=== PATIENT | male | born 1990 | race American Indian/Alaskan Native ===

== ENCOUNTER 2019-03-09 14:54 | Emergency (ER) | payer OTHER ==
[2019-03-09 15:04] VITALS: BP 149/99
--- NOTE | 2019-03-09 15:05 | Event Note ---
ED Screening Note Date of service: 03/09/19 Time: 15:02 ED Screening Note: This is a 28 y.o. M. that presents to the ER with left sided facial paralysis since lunch today. Current marijuana and cigarette smoker PMH of bells palsy This initial assessment/diagnostic orders/clinical plan/treatment(s) is/are subject to change based on patients health status, clinical progression and re- assessment by fellow clinical providers in the ED. Further treatment and workup at subsequent clinical providers discretion. Patient/guardian urged not to elope from the ED as their condition may be serious if not clinically assessed and managed. Initial orders include:
--- NOTE | 2019-03-09 15:34 | Emergency Department Report ---
ED Neuro Deficit HPI - General Chief Complaint: Neuro Symptoms/Deficit Stated Complaint: CHATMAN PALSY Time Seen by Provider: 03/09/19 15:02 Source: patient Mode of arrival: Ambulatory Limitations: No Limitations - History of Present Illness Initial Comments: Patient is a 28-year-old male who is presenting with some left sided facial droop starting this morning. 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 Patient states he is having difficulty closing the left high and has tearing. Patient denies any arm or leg involvement. He has some mild facial numbness to the left side of the face. Patient denies any neck stiffness headache fevers chills nausea vomiting. - Related Data Home Medications: Previous Rx's Medication Instructions Recorded Last Taken Type Prednisone [Prednisone 10 mg 10 mg PO .TAPER #1 tab.ds.pk 10/27/14 Unknown Rx (6-Day Pack, 21 Tabs)] Dextran 70/Hypromellose [Natural 2 drop OS QHS #1 bottle 03/09/19 Unknown Rx Balance Tears Eye Drop] Prednisone [predniSONE 10 mg 10 mg PO .TAPER #1 tab.ds.pk 03/09/19 Unknown Rx (6-Day Pack, 21 Tabs)] valACYclovir [Valtrex] 500 mg PO BID #10 tab 03/09/19 Unknown Rx Allergies/Adverse Reactions: Allergies Allergy/AdvReac Type Severity Reaction Status Date / Time No Known Allergies Allergy Unverified 10/27/14 03:16 ED Review of Systems ROS: Stated complaint: CHATMAN PALSY Other details as noted in HPI Comment: All other systems reviewed and negative ED Past Medical Hx - Past Medical History Previous Medical History?: Yes Additional medical history: Chatman's Palsy - Surgical History Past Surgical History?: No - Social History Smoking Status: Current Every Day Smoker Substance Use Type: Alcohol, Marijuana - Medications Home Medications: Home Medications Medication Instructions Recorded Confirmed Last Taken Type Prednisone [Prednisone 10 mg 10 mg PO .TAPER #1 tab.ds.pk 10/27/14 Unknown Rx (6-Day Pack, 21 Tabs)] Dextran 70/Hypromellose [Natural 2 drop OS QHS #1 bottle 03/09/19 Unknown Rx Balance Tears Eye Drop] Prednisone [predniSONE 10 mg 10 mg PO .TAPER #1 tab.ds.pk 03/09/19 Unknown Rx (6-Day Pack, 21 Tabs)] valACYclovir [Valtrex] 500 mg PO BID #10 tab 03/09/19 Unknown Rx ED Neuro Physical Exam - General Limitations: No Limitations General appearance: alert, in no apparent distress Suspected Stroke: No - Head Head exam: Present: atraumatic, normocephalic - Eye Eye exam: Present: normal appearance - ENT ENT exam: Present: mucous membranes moist - Neck Neck exam: Present: normal inspection - Respiratory Respiratory exam: Present: normal lung sounds bilaterally. Absent: respiratory distress - Cardiovascular Cardiovascular Exam: Present: regular rate, normal rhythm. Absent: systolic murmur, diastolic murmur, rubs, gallop - GI/Abdominal GI/Abdominal exam: Present: soft, normal bowel sounds - Rectal Rectal exam: Present: deferred - Extremities Exam Extremities exam: Present: normal inspection - Back Exam Back exam: Present: normal inspection - Neurological Exam Neurological exam: Present: alert, oriented X3 - NIHSS Assessment Interval: Baseline 1a. Level of Consciousness: alert/keenly responsive 1b. LOC Questions: answers both correctly 1c. LOC Commands: performs tasks correctly 2. Best Gaze: normal 3. Visual: no visual loss 4. Facial Palsy: partial paralysis 5b. Motor Arm Right: no drift 5a. Motor Arm Left: no drift 6a. Motor Leg Left: no drift 6b. Motor Leg Right: no drift 7. Limb Ataxia: absent 8. Sensory: normal 9. Best Language: no aphasia 10. Dysarthria: normal 11. Extinction/Inattention: no abnormality Total Score: 2 Stroke Severity: Minor Stroke - Psychiatric Psychiatric exam: Present: normal affect, normal mood - Skin Skin exam: Present: warm, dry, intact, normal color. Absent: rash ED Course Vital Signs 03/09/19 15:02 Temperature 98.5 F Pulse Rate 84 Respiratory 20 Rate Blood Pressure 149/99 O2 Sat by Pulse 98 Oximetry - Medical Decision Making Patient with complete paralysis to the left face involving the forehead as well. This consistent with a Chatman's palsy and not acute CVA. Patient is started on prednisone and antiviral medications as well as natural tears and be discharged home. Critical care attestation.: If time is entered above; I have spent that time in minutes in the direct care of this critically ill patient, excluding procedure time. ED Disposition Clinical Impression: Chatman palsy Disposition: DC-01 TO HOME OR SELFCARE Is pt being admited?: No Does the pt Need Aspirin: No Condition: Stable Instructions: Chatman Palsy (ED) Additional Instructions: Be sure to tape the eyelid shut at night Referrals: AISLINN COUCH MD [Referring] - 3-5 Days Time of Disposition: 15:29
== END 2019-03-09 15:42 | disposition home or self-care (01) ==
LOC: ED 14:54
DX: G51.0 Bell's palsy (principal); F17.200 Nicotine dependence, unspecified, uncomplicated; F12.10 Cannabis abuse, uncomplicated; Z79.899 Other long term (current) drug therapy
CPT/HCPCS: 99282